=== PATIENT | male | born 1960 | race Caucasian/White ===

== ENCOUNTER 2019-10-21 15:26 | Emergency (ER) | payer BC ==
--- NOTE | 2019-10-21 15:47 | EDM.PDOC ---
ED HPI GENERAL MEDICAL PROBLEM - General Chief Complaint: Neurological Problem Stated Complaint: STROKE SYMPTOMS Time Seen by Provider: 10/21/19 15:30 - History of Present Illness INITIAL COMMENTS - FREE TEXT/NARRATIVE: 59-year-old male presents to the emergency room with weakness and fatigue. Family is concerned that maybe he had a stroke. Patient thinks he is working too much and overfatigue from work. The patient rides his bike to and from work he had an issue with that today when he thought some was bound up in the back of his bike just as he got on it and did get rolling but fell off of that he did not hit his head. No injury associated with this fall. The patient has not been able to exercise as good as he normally would like to over the last several weeks. He has not had any associated chest pain chest pressure breathing difficulties or shortness of breath. His family is concerned that his cognitive function is not as normal as it should be. Right Headache Pain Score (Numeric/FACES): 5 ED ROS GENERAL - Review of Systems Review Of Systems: See Below Constitutional: Reports: No Symptoms HEENT: Reports: No Symptoms Respiratory: Reports: No Symptoms Cardiovascular: Reports: No Symptoms Endocrine: Reports: No Symptoms GI/Abdominal: Reports: No Symptoms : Reports: No Symptoms Musculoskeletal: Reports: No Symptoms Skin: Reports: No Symptoms Neurological: Reports: Other (Is having more generalized fatigue and he just does not feel as strong as he should). Denies: Headache, Numbness, Pre-Existing Deficit, Trouble Speaking, Difficulty Walking Psychiatric: Reports: No Symptoms Hematologic/Lymphatic: Reports: No Symptoms Immunologic: Reports: No Symptoms ED EXAM, GENERAL - Physical Exam Exam: See Below Exam Limited By: No Limitations General Appearance: Alert, No Apparent Distress Eye Exam: Bilateral Eye: Normal Inspection, PERRL Ears: Normal External Exam, Normal Canal, Hearing Grossly Normal, Normal TMs Nose: Normal Inspection, Normal Mucosa, No Blood Throat/Mouth: Normal Inspection, Normal Lips, Normal Teeth, Normal Gums Head: Atraumatic, Normocephalic Neck: Normal Inspection, Supple, Non-Tender. No: Lymphadenopathy (L), Lymphadenopathy (R) Respiratory/Chest: No Respiratory Distress, Lungs Clear, Normal Breath Sounds Cardiovascular: Regular Rate, Rhythm, No Edema, No Murmur GI/Abdominal: Normal Bowel Sounds, Soft, Non-Tender Back Exam: Normal Inspection. No: CVA Tenderness (L), CVA Tenderness (R) Extremities: Normal Inspection, Non-Tender, No Pedal Edema Neurological: Alert, Oriented, CN II-XII Intact, Normal Cognition, No Motor/Sensory Deficits Psychiatric: Normal Affect, Normal Mood Skin Exam: Warm, Dry, Intact Lymphatic: No Adenopathy EKG INTERPRETATION EKG Date: 10/21/19 Rhythm: NSR Rate (Beats/Min): 57 [place]: Normal P-Wave: Present QRS: Normal ST-T: Normal QT: Normal Comparison: NA - No Prior EKG EKG Interpretation Comments: normal EKG Course - Vital Signs Last Recorded V/S: Last Vital Signs Temp 36.3 C 10/21/19 17:03 Pulse 61 10/21/19 17:03 Resp 18 10/21/19 17:03 BP 135/72 10/21/19 17:03 Pulse Ox 98 10/21/19 17:03 - Orders/Labs/Meds Orders: Active Orders 24 hr Category Date Time Status EKG Documentation Completion [RC] STAT Care 10/21/19 15:45 Active Head wo Cont [CT] Routine Exams 10/21/19 16:08 Taken CORONAVIRUS COVID-19 SATHISH [MOLEC] Stat Lab 10/21/19 18:24 Ordered Labs: Laboratory Tests 10/21/19 10/21/19 10/21/19 Range/Units 16:00 16:00 16:00 WBC 8.48 (4.23-9.07) K/mm3 RBC 5.05 (4.63-6.08) M/mm3 Hgb 15.3 (13.7-17.5) gm/dl Hct 45.7 (40.1-51.0) % MCV 90.5 (79.0-92.2) fl MCH 30.3 (25.7-32.2) pg MCHC 33.5 (32.2-35.5) g/dl RDW Std Deviation 40.8 (35.1-43.9) fL Plt Count 252 (163-337) K/mm3 MPV 10.0 (9.4-12.3) fl Neut % (Auto) 75.2 H (34.0-67.9) % Lymph % (Auto) 15.4 L (21.8-53.1) % [place] % (Auto) 7.4 (5.3-12.2) % Eos % (Auto) 1.3 (0.8-7.0) Baso % (Auto) 0.6 (0.1-1.2) % Neut # (Auto) 6.37 H (1.78-5.38) K/mm3 Lymph # (Auto) 1.31 L (1.32-3.57) K/mm3 [place] # (Auto) 0.63 (0.30-0.82) K/mm3 Eos # (Auto) 0.11 (0.04-0.54) K/mm3 Baso # (Auto) 0.05 (0.01-0.08) K/mm3 PT 10.8 (9.7-11.7) SECONDS INR 1.01 APTT 25 (22-31) SECONDS Sodium 138 (136-145) mEq/L Potassium 3.7 (3.5-5.1) mEq/L Chloride 101 (98-107) mEq/L Carbon Dioxide 30 (21-32) mEq/L Anion Gap 10.7 (5-15) BUN 19 H (7-18) mg/dL Creatinine 1.0 (0.7-1.3) mg/dL Est Cr Clr Drug Dosing TNP Estimated GFR (MDRD) > 60 (>60) mL/min BUN/Creatinine Ratio 19.0 H (14-18) Glucose 96 (74-106) mg/dL Calcium 9.6 (8.5-10.1) mg/dL Total Bilirubin 0.3 (0.2-1.0) mg/dL AST 23 (15-37) U/L ALT 60 (16-63) U/L Alkaline Phosphatase 93 (46-116) U/L Troponin I < 0.017 (0.00-0.056) ng/mL Total Protein 7.2 (6.4-8.2) g/dl Albumin 4.0 (3.4-5.0) g/dl Globulin 3.2 gm/dL Albumin/Globulin Ratio 1.3 (1-2) TSH 3rd Generation 1.095 (0.358-3.74) uIU/mL Urine Color (Yellow) Urine Appearance (Clear) Urine pH (5.0-8.0) Ur Specific [place] (1.005-1.030) Urine Protein (Negative) Urine Glucose (UA) (Negative) Urine Ketones (Negative) Urine Occult Blood (Negative) Urine Nitrite (Negative) Urine Bilirubin (Negative) Urine Urobilinogen (0.2-1.0) Ur Leukocyte Esterase (Negative) Urine Opiates Screen (BUOXBR=834) Ur Buprenorphine Scrn (CUTOFF=10) Ur Oxycodone Screen (IJX2SJ=363) Urine Methadone Screen (KEA3UJ=907) Ur Propoxyphene Screen (DSQDTU=531) Ur Barbiturates Screen (MJXHOC=910) Ur Tricyclics Screen (YNOOOD=306) Ur Phencyclidine Scrn (CUTOFF=25) Ur Amphetamine Screen (CEIHKZ=078) U Methamphetamines Scrn (SQNEUV=061) U Benzodiazepines Scrn (CXTDVF=545) U Cocaine Metab Screen (GUZWOF=265) U Marijuana (THC) Screen (CUTOFF=50) Ethyl Alcohol 0.00 (0.00) gm% 10/21/19 10/21/19 Range/Units 16:16 16:16 WBC (4.23-9.07) K/mm3 RBC (4.63-6.08) M/mm3 Hgb (13.7-17.5) gm/dl Hct (40.1-51.0) % MCV (79.0-92.2) fl MCH (25.7-32.2) pg MCHC (32.2-35.5) g/dl RDW Std Deviation (35.1-43.9) fL Plt Count (163-337) K/mm3 MPV (9.4-12.3) fl Neut % (Auto) (34.0-67.9) % Lymph % (Auto) (21.8-53.1) % [place] % (Auto) (5.3-12.2) % Eos % (Auto) (0.8-7.0) Baso % (Auto) (0.1-1.2) % Neut # (Auto) (1.78-5.38) K/mm3 Lymph # (Auto) (1.32-3.57) K/mm3 [place] # (Auto) (0.30-0.82) K/mm3 Eos # (Auto) (0.04-0.54) K/mm3 Baso # (Auto) (0.01-0.08) K/mm3 PT (9.7-11.7) SECONDS INR APTT (22-31) SECONDS Sodium (136-145) mEq/L Potassium (3.5-5.1) mEq/L Chloride (98-107) mEq/L Carbon Dioxide (21-32) mEq/L Anion Gap (5-15) BUN (7-18) mg/dL Creatinine (0.7-1.3) mg/dL Est Cr Clr Drug Dosing Estimated GFR (MDRD) (>60) mL/min BUN/Creatinine Ratio (14-18) Glucose (74-106) mg/dL Calcium (8.5-10.1) mg/dL Total Bilirubin (0.2-1.0) mg/dL AST (15-37) U/L ALT (16-63) U/L Alkaline Phosphatase (46-116) U/L Troponin I (0.00-0.056) ng/mL Total Protein (6.4-8.2) g/dl Albumin (3.4-5.0) g/dl Globulin gm/dL Albumin/Globulin Ratio (1-2) TSH 3rd Generation (0.358-3.74) uIU/mL Urine Color Yellow (Yellow) Urine Appearance Clear (Clear) Urine pH 6.0 (5.0-8.0) Ur Specific [place] 1.020 (1.005-1.030) Urine Protein Negative (Negative) Urine Glucose (UA) Negative (Negative) Urine Ketones Negative (Negative) Urine Occult Blood Negative (Negative) Urine Nitrite Negative (Negative) Urine Bilirubin Negative (Negative) Urine Urobilinogen 0.2 (0.2-1.0) Ur Leukocyte Esterase Negative (Negative) Urine Opiates Screen Negative (XGTDYQ=359) Ur Buprenorphine Scrn Negative (CUTOFF=10) Ur Oxycodone Screen Negative (RXC1ZX=061) Urine Methadone Screen Negative (RFQ8UQ=631) Ur Propoxyphene Screen Negative (FSAOKZ=545) Ur Barbiturates Screen Negative (GTQYNG=982) Ur Tricyclics Screen Negative (KXXHKZ=675) Ur Phencyclidine Scrn Negative (CUTOFF=25) Ur Amphetamine Screen Negative (LTCBSE=307) U Methamphetamines Scrn Negative (AMWDRS=675) U Benzodiazepines Scrn Negative (MRMQAP=983) U Cocaine Metab Screen Negative (QWWMUJ=979) U Marijuana (THC) Screen Negative (CUTOFF=50) Ethyl Alcohol (0.00) gm% - Re-Assessments/Exams Free Text/Narrative Re-Assessment/Exam: 10/21/19 18:14 Laboratory evaluation is unrevealing. EKG shows no acute changes. Head CT shows what looks like a right parietal and frontal mass with some cytotoxic swelling compressing the ventricle. The case was discussed with Dr. Chopra on- call neurosurgeon at [facility] in [place] who recommends sending the patient over by private car. After this was discussed with the patient I then learned that the patient lives in [place]. At this point I discussed this with the patient and the patient's they will head home and seek medical attention immediately. They will seek medical attention at a emergency room in [place]. Offered to send him by private car to [facility] in [place] but they really want to be closer to home. We will make a copy of the CD on a compact disc. He will need an MRI for further evaluation. Departure - Departure Time of Disposition: 18:17 Disposition: Home, Self-Care 01 Clinical Impression: Brain mass - Discharge Information Referrals: PCP,Not In Area [Primary Care Provider] - Forms: ED Department Discharge Additional Instructions: Go back home to [place] and seek medical attention at the closest major medical facility. Do this as quickly as practical. Return to any medical center with any urgent needs Sepsis Event Note (ED) - Evaluation Sepsis Screening Result: No Definite Risk - Focused Exam Vital Signs: Vital Signs Temp Pulse Resp BP Pulse Ox 10/21/19 17:03 36.3 C 61 18 135/72 98 10/21/19 16:05 58 L 16 146/80 H 98 10/21/19 15:35 36.6 C 61 18 143/76 H 99 - My Orders Last 24 Hours: My Active Orders 10/21/19 15:45 EKG Documentation Completion [RC] STAT 10/21/19 16:08 Head wo Cont [CT] Routine 10/21/19 18:24 CORONAVIRUS COVID-19 SATHISH [MOLEC] Stat - Assessment/Plan Last 24 Hours: My Active Orders 10/21/19 15:45 EKG Documentation Completion [RC] STAT 10/21/19 16:08 Head wo Cont [CT] Routine 10/21/19 18:24 CORONAVIRUS COVID-19 SATHISH [MOLEC] Stat
--- NOTE | 2019-10-22 13:10 | CT ---
Head CT Technique: Multiple axial sections through the brain were obtained. Intravenous contrast was not utilized. Findings: Edema is noted within the right temporal and parietal regions. This does not appear as a usual ischemic infarct and most likely represents edema on a cytotoxic basis from intracranial mass or metastasis. This causes mass-effect and effacement of the sulci on the right side. Midline shift is also noted. Bone window settings were reviewed which shows no acute calvarial abnormality. Visualized paranasal sinuses and mastoid sinuses are clear. Impression: 1. Probable cytotoxic edema causing mass-effect on the right side as noted above. Findings most likely due to intracranial mass or metastasis. MRI without and with intravenous contrast is strongly recommended. Diagnostic code #9 This report was dictated in MDT MTDD
== END 2019-10-21 18:50 | disposition home or self-care (01) ==
LOC: JD.ED 15:26
DX: G93.89 Other specified disorders of brain (principal); Z20.828 Contact with and (suspected) exposure to other viral communicable diseases
CPT/HCPCS: 36415; 70450; 70450-26; 80053; 80306; 80307; 81003; 84443; 84484; 85025; 85610; 85730; 93005; 93010; 99283; 99285-25; U0002